=== PATIENT | female | born 1965 | race Caucasian/White ===

== ENCOUNTER → 2022-02-17 08:45 | Outpatient (CLI) | payer OTHER, SELFPAY ==
--- NOTE | 2022-02-17 08:46 | US_ITS ---
FINAL REPORT CLINICAL HISTORY: bilateral thyroid nodules FINDINGS: Ultrasound guided thyroid biopsy. HISTORY: Thyroid nodules bilaterally. PROCEDURE: After informed consent was obtained and a time-out was performed, the patient was prepped and draped in usual sterile fashion over the anterior neck. Utilizing local anesthesia and sterile technique with a 25-gauge needle, access to1 of the right thyroid lobe nodules was obtained. 4 passes were made through this nodule. The second right thyroid nodule was then targeted and 4 passes were made through this nodule. A lesion in the left thyroid lobe was then targeted. 4 biopsy passes were made through this lesion.The patient received no conscious sedation. The patient tolerated procedure well and left the department in good condition. IMPRESSION: Status post ultrasound guided biopsy of 2 right thyroid nodules and one left thyroid nodule as detailed above. Films reviewed , interpreted and dictated by Dr. Jacob Transcribed by Alon Dallas PA-C. Reviewed, Interpreted and Dictated by Flo Jacob III, MD Transcribed by TERESA Jensen Authenticated and [facility]
== END ==
PROVIDERS: PCP Family Medicine; Visit Provider Student in an Organized Health Care Education/Training Program
DX: E04.9 Nontoxic goiter, unspecified (principal)
CPT/HCPCS: 10005

== ENCOUNTER 2022-07-26 07:11 | Emergency (ER) | payer OTHER, SELFPAY ==
[2022-07-26 07:44] VITALS: BP 0/0; PULSE 0; RESP 0; TEMP -17.7; TEMP 0; O2SAT 0
== END 2022-07-26 07:48 | disposition left against medical advice (07) ==
LOC: ER 07:46
PROVIDERS: Emergency Provider Emergency Medicine; PCP Family Medicine
DX: H10.31 Unspecified acute conjunctivitis, right eye (principal); F17.200 Nicotine dependence, unspecified, uncomplicated; Z53.21 Procedure and treatment not carried out due to patient leaving prior to being seen by health care provider; Z79.02 Long term (current) use of antithrombotics/antiplatelets; Z79.52 Long term (current) use of systemic steroids; Z79.82 Long term (current) use of aspirin; Z79.899 Other long term (current) drug therapy
CPT/HCPCS: 99211

== ENCOUNTER 2022-07-26 08:00 | Emergency (ER) | payer OTHER, SELFPAY ==
--- NOTE | 2022-07-26 08:26 | EXP.UTC ---
Discharge Plan Disposition Patient Disposition: Home, Self-Care Condition: Good Prescriptions Prescriptions: New prednisone 10 mg tablet 10 mg PO BID 5 Days Qty: 10 0RF amoxicillin-pot clavulanate 875-125 mg Tablet 1 tab PO Q12H 7 Days Qty: 14 0RF polymyxin B sulf-trimethoprim [Polytrim] 10,000 unit- 1 mg/mL drops 2 drp ophthalmic (eye) Q6H 7 Days Qty: 10 0RF Rx Instructions: while awake; do not exceed 6 doses in 24 hours benzonatate 100 mg capsule 100 mg PO TID PRN (Reason: cough) Qty: 30 0RF No Action clopidogrel 75 mg tablet 75 mg PO DAILY lisinopril 10 mg tablet 10 mg PO DAILY aspirin 81 mg tablet,delayed release (DR/EC) 81 mg PO DAILY atorvastatin 40 mg tablet 40 mg PO DAILY Referrals Follow up/Referrals: Ayesha Cordova [Primary Care Provider] - See instructions Activity Restrictions/Add. Instructions Additional Instructions/Restrictions: Wash hands well before and after applying eye drops Clean eyes with warm water and baby shampoo *Monitor Temp, Over the counter Motrin or Tylenol as directed/as needed Tylenol every 4 hours and Motrin every 6 hours (as long as your family doctor has told you that you can take it) for fever or pain. and straight to ER if unable to lower temp less than 101.0 after medication given *Warm salt water gargles may help to soothe the throat *Throat Lozenges? *Warm fluids like tea with honey may help to soothe the throat? *Sleep elevated *Humidifier/Vaporizer Follow up IMMEDIATELY for new or worsening symptoms or no Noticeable improvement over the next 48-72 hours. 911 for difficulty breathing or swallowing Clinical Impressions Clinical Impression: Conjunctivitis, Sinusitis Instructions Patient Instructions: DI for Sinusitis, Sinusitis, DI for Conjunctivitis Discharge ED Provider: Brigette Hdz [facility] [place] HPI General Stated complaint: Congestion, Right eye redness Time Seen by Provider: 07/26/22 08:26 History of Present Illness Provider Complaint: Patient state that she has been fighting a sinus infection for about 2 weeks State that her grandson has pink eye and she woke up this morning with her right eye red and matted shut and draining thinks she may have it now too Related Data Home Medications Medication Instructions Recorded Confirmed aspirin 81 mg tablet,delayed 81 mg PO DAILY 02/02/22 03/10/22 release atorvastatin 40 mg tablet 40 mg PO DAILY Cholesterol 02/02/22 07/26/22 clopidogrel 75 mg tablet 75 mg PO DAILY 03/10/22 03/10/22 lisinopril 10 mg tablet 10 mg PO DAILY High blood pressure 03/10/22 07/26/22 Previous Rx's Medication Instructions Recorded amoxicillin 875 mg-potassium 1 tab PO Q12H 7 days #14 tabs 07/26/22 clavulanate 125 mg tablet benzonatate 100 mg capsule 100 mg PO TID PRN cough #30 caps 07/26/22 polymyxin B sulfate 10,000 2 drp ophthalmic (eye) Q6H 7 days 07/26/22 unit-trimethoprim 1 mg/mL eye #10 mL drops (Polytrim) prednisone 10 mg tablet 10 mg PO BID 5 days #10 tabs 07/26/22 Allergies Allergy/AdvReac Type Severity Reaction Status Date / Time No Known Allergies Allergy Verified 07/26/22 08:33 [facility] Social History Smoking Status: Current every day smoker alcohol intake: never current occupational status: employed Travel in the last 8 weeks: None caffeine: Yes ROS Obtained: Yes All systems reviewed & no additional complaints except as documented and Yes Systems reviewed as appropriate & no additional complaints except as documented Constitutional Constitutional: Reports system reviewed and no additional complaints, except as documented and Reports as per HPI Eyes Eyes: Reports system reviewed and no additional complaints, except as documented, Reports as per HPI, Reports eye discharge, Reports irritation and Reports other (redness and matting) ENT Ears, Nose, Mouth, and Throat: Reports system reviewed and no additional co
[2022-07-26 08:30] VITALS: BP 149/64; PULSE 83; RESP 16; TEMP 37.1; O2SAT 97; BMI 31.3
[2022-07-26 08:41] VITALS: BP 149/64; PULSE 83; RESP 16; TEMP 37.1
== END 2022-07-26 08:42 | disposition home or self-care (01) ==
PROVIDERS: Emergency Provider Nurse Practitioner; PCP Family Medicine
DX: H10.9 Unspecified conjunctivitis (principal); R05.9 Cough, unspecified; F17.200 Nicotine dependence, unspecified, uncomplicated; Z79.02 Long term (current) use of antithrombotics/antiplatelets; Z79.52 Long term (current) use of systemic steroids; Z79.82 Long term (current) use of aspirin; Z79.899 Other long term (current) drug therapy
CPT/HCPCS: 99213; G0463

== ENCOUNTER → 2022-08-31 13:39 | Outpatient (CLI) | payer OTHER, SELFPAY ==
--- NOTE | 2022-08-31 13:39 | US_ITS ---
FINAL REPORT CLINICAL HISTORY: 6 month f/u goiter COMPARISON: February 17, 2022 FINDINGS: THYROID ULTRASOUND Sonographic images of the thyroid was obtained. The right lobe of the thyroid measures 5.7 x 2.4 x 1.9 cm. The left lobe of the thyroid measures 5.7 x 2.5 x 2.3 cm. The isthmus measures 5 mm. There are multiple nodules bilaterally includin. 12 x 9 x 6 mm right upper lobe nodule is spongiform, TI-RADS 1. 2. 10 x 9 x 8 mm mid right lobe nodule is mostly solid and isoechoic common TI-RADS 3. 3. 15 x 15 x 7 mm right lobe nodule is mostly solid and isoechoic, TI-RADS 3. 4. 31 x 19 x 17 mm left mid and lower lobe is solid and isoechoic, TI-RADS 3. IMPRESSION: Multiple nodules bilaterally as above. A direct comparison to the prior biopsy ultrasound is not possible but the dominant mass in the lower pole of the left lobe was present. Additional follow-up ultrasound is recommended in 6-12 months. Reviewed, Interpreted and Dictated by Flo Jacob III, MD Transcribed by Ana Johnson Authenticated and [facility]
== END ==
LOC: RAD 13:39
PROVIDERS: PCP Family Medicine; Visit Provider Student in an Organized Health Care Education/Training Program
DX: E04.9 Nontoxic goiter, unspecified (principal)
CPT/HCPCS: 76536

== ENCOUNTER 2022-10-17 16:58 | Emergency (ER) | payer OTHER, SELFPAY ==
--- NOTE | 2022-10-17 17:09 | HMH.EDBACK ---
Discharge Plan Disposition Patient Disposition: Home, Self-Care Condition: Fair Prescriptions Prescriptions: New ketorolac 10 mg Tablet 10 mg PO Q6H PRN (Reason: pain.) Qty: 8 0RF No Action clopidogrel 75 mg tablet 75 mg PO DAILY lisinopril 10 mg tablet 10 mg PO DAILY aspirin 81 mg tablet,delayed release (DR/EC) 81 mg PO DAILY atorvastatin 40 mg tablet 40 mg PO DAILY benzonatate 100 mg capsule 100 mg PO TID PRN (Reason: cough) Qty: 30 0RF Referrals Follow up/Referrals: Ayesha Cordova [Primary Care Provider] - See instructions Activity Restrictions/Add. Instructions Additional Instructions/Restrictions: No heavy lifting or stooping. Follow-up with your primary care doctor in about 2 to 3 days if you do not improve. Return to the emergency department immediately if you feel worse in any way. You may take [id number] Tylenol as needed. Clinical Impressions Clinical Impression: Back pain Instructions Patient Instructions: DI for Low Back Pain Discharge ED Provider: Meme Garcia Back Pain HPI General Chief Complaint: PAIN Stated Complaint: Sever right side pain Time Seen by Provider: 10/17/22 17:06 History of Present Illness HPI Narrative: The patient presents to the emergency department complaining of right-sided low back and flank pain that began about 2 days ago. It is worse with movement. The patient denies nausea or vomiting. She denies abdominal pain. She denies dysuria. She denies a history of injuries. Related Data Home Medications Medication Instructions Recorded Confirmed aspirin 81 mg tablet,delayed 81 mg PO DAILY 02/02/22 09/07/22 release atorvastatin 40 mg tablet 40 mg PO DAILY Cholesterol 02/02/22 09/07/22 clopidogrel 75 mg tablet 75 mg PO DAILY 03/10/22 09/07/22 lisinopril 10 mg tablet 10 mg PO DAILY High blood pressure 03/10/22 09/07/22 Previous Rx's Medication Instructions Recorded benzonatate 100 mg capsule 100 mg PO TID PRN cough #30 caps 07/26/22 ketorolac 10 mg tablet 10 mg PO Q6H PRN pain. #8 tabs 10/17/22 Allergies Allergy/AdvReac Type Severity Reaction Status Date / Time No Known Allergies Allergy Verified 09/07/22 13:17 [facility] Disclaimer: The information contained in this section may have been updated after the patient was seen, as this information can be updated by other users. Medical History (Updated 10/17/22 @ 18:14 by Meme Garcia MD) Impacted cerumen Thyroid nodule Social History Smoking Status: Never smoker alcohol intake: never current occupational status: employed Travel in the last 8 weeks: None caffeine: Yes ROS Obtained: Yes All systems reviewed & no additional complaints except as documented Physical Exam General General appearance: alert Head Head exam: atraumatic Eye Eye exam: Present normal appearance ENT ENT exam: Present normal exam Neck Neck exam: Present normal inspection and full ROM; Absent tenderness or meningismus Chest Chest inspection: Present normal inspection and symmetric chest wall rise; Absent tenderness Respiratory Respiratory exam: Present normal lung sounds bilaterally; Absent respiratory distress or accessory muscle use Cardiovascular Cardiovascular exam: Present regular rate, normal rhythm and normal heart sounds Abdominal Exam Abdominal exam: Present soft and normal bowel sounds; Absent distention, tenderness, heel tap sign, Villegas's sign, Rovsing's sign, tenderness at McBurney's Point or mass Extremities Exam Extremities exam: Present normal inspection and full ROM; Absent calf tenderness Back Exam Back exam: Present normal inspection and other (The pain is reproducible with twisting motion and laying down and sitting up on the stretcher.); Absent tenderness, CVA tenderness (R), CVA tenderness (L), straight leg raise (R) or straight leg raise (L) Neurological Exam Neurological exam:
[2022-10-17 17:10] VITALS: BP 165/69; PULSE 84; RESP 20; TEMP 36.8; O2SAT 98; BMI 31.3
[2022-10-17 18:26] VITALS: BP 161/84; PULSE 82; RESP 20; TEMP 36.8; O2SAT 98
== END 2022-10-17 18:27 | disposition home or self-care (01) ==
PROVIDERS: Emergency Provider Emergency Medicine; PCP Family Medicine
DX: M54.50 Low back pain, unspecified (principal); R10.9 Unspecified abdominal pain; E04.1 Nontoxic single thyroid nodule
CPT/HCPCS: 96372; 99283; 99284

== ENCOUNTER → 2023-08-18 13:50 | Outpatient (CLI) | payer OTHER, SELFPAY ==
--- NOTE | 2023-08-18 14:04 | US_ITS ---
FINAL REPORT CLINICAL HISTORY: thyroid nodule COMPARISON: 08/31/2022 FINDINGS: THYROID ULTRASOUND: The right lobe of the thyroid measures 5.4 x 2.3 x 1.9 cm in size. The left lobe of the thyroid gland measures 5.85 x 2.4 x 2.1 cm in size. The isthmus measures 6.5 mm in thickness. There are multiple parenchymal nodules noted in the thyroid gland bilaterally. Some of these nodules include: 1. Right lobe 12 x 9 x 8 mm in size, spongiform, TI-RADS category 1, stable since the prior examination. 2. Right lobe nodule measuring 10 x 8 x 5 mm, solid, isoechoic, TI-RADS category 3 nodule, stable. 3. Right lobe nodule measuring approximately 14 mm in greatest diameter, not as well-visualized as on the previous examination, when it measured 15 x 15 x 7 mm in size. This is a solid, isoechoic TI-RADS category 3 nodule, and visually appears relatively stable. 4. Left lobe 29 x 14 x 19 mm nodule, solid, isoechoic, TI-RADS category 3 nodule, also visually stable. Several other small subcentimeter nodules are present as well, generally stable. IMPRESSION: Multiple nodules are identified as described above, by TI-RADS criteria 12-month follow-up is suggested. Reviewed, Interpreted and Dictated by Flo Jacob III, MD Transcribed by Rosanna Mckoy Authenticated and [facility]
== END ==
PROVIDERS: PCP Family Medicine; Visit Provider Student in an Organized Health Care Education/Training Program
DX: E04.1 Nontoxic single thyroid nodule (principal)
CPT/HCPCS: 76536

== ENCOUNTER 2024-08-13 13:35 | Outpatient (CLI) | payer OTHER, SELFPAY ==
--- NOTE | 2024-08-13 13:36 | US_ITS ---
FINAL REPORT CLINICAL HISTORY: thyroid nodule COMPARISON: 08/18/2023 FINDINGS: Sonographic images of the thyroid gland were obtained. The right thyroid lobe measures 57 mm. in length. The left thyroid lobe measures 58 mm. in length. The thyroid isthmus measures 5 mm. Echogenicity is heterogeneous. Multiple bilateral thyroid nodules. Right upper 11 x 9 x 7 mm solid and hypoechoic, TR 4. Left lobe dominant 28 x 13 x 20 mm solid and isoechoic TR 3. IMPRESSION: Dominant left lobe 28 mm TR 3 nodule. Ultrasound-guided biopsy recommended per TI-RADS criteria. Reviewed, Interpreted and Dictated by Flo Jacob III, MD Transcribed by Nichole López Authenticated and [facility]
== END 2024-08-13 23:59 | disposition home or self-care (01) ==
LOC: RAD 13:36
PROVIDERS: PCP Family Medicine; Visit Provider Nurse Practitioner
DX: E04.1 Nontoxic single thyroid nodule (principal)
CPT/HCPCS: 76536

== ENCOUNTER 2024-08-31 07:32 | Outpatient (CLI) | payer OTHER, SELFPAY ==
--- NOTE | 2024-08-31 07:33 | US_ITS ---
FINAL REPORT CLINICAL HISTORY: .LT THYROID NODULE -- JOHANNA MOORE FINDINGS: Ultrasound guided thyroid biopsy. HISTORY: Thyroid mass. PROCEDURE: After informed consent was obtained and a time-out was performed, the patient was prepped and draped in usual sterile fashion over the anterior neck. Utilizing local anesthesia and sterile technique with a 25-gauge needle, access to the lesion was obtained. Four passes were made. The patient received no conscious sedation. The patient tolerated the procedure well and left the department in good condition. IMPRESSION: Status post ultrasound guided biopsy of a thyroid nodule without immediate complication. Films reviewed , interpreted and dictated by Dr. Pendleton. Transcribed by Johanna Dallas PA-C. Reviewed, Interpreted and Dictated by Eddy Pendleton MD Transcribed by TERESA Jensen Authenticated and [facility]
== END 2024-08-31 23:59 | disposition home or self-care (01) ==
LOC: RAD 07:33
PROVIDERS: PCP Family Medicine; Visit Provider Nurse Practitioner
DX: E04.1 Nontoxic single thyroid nodule (principal)
CPT/HCPCS: 10005